=== PATIENT | male | born 1970 | race Caucasian/White ===

== ENCOUNTER 2024-03-03 02:03 | Emergency (ER) | payer MEDICAID ==
[2024-03-03 02:22] LABS: BASOPHILS ABSOLUTE AUTO 0.04 K/uL (0.00-0.20); BASOPHILS PERCENT AUTO 0.4 % (0.0-1.0); EOSINOPHILS ABSOLUTE AUTO 0.03 K/uL (0.00-0.45); EOSINOPHILS PERCENT AUTO 0.3 % (0.0-6.0); HEMATOCRIT 27.9 % (42.0-52.0); HEMOGLOBIN 9.1 g/dL (14.0-18.0); IMMATURE GRAN ABSOLUTE AUTO 0.04 K/uL (0.00-0.05); IMMATURE GRAN PERCENT AUTO 0.4 % (0.0-0.4); LYMPHOCYTES ABSOLUTE AUTO 1.08 K/uL (1.00-4.80); MEAN CORPUSCULAR HEMOGLOBIN 27.8 pg (28.0-32.0); MEAN CORPUSCULAR HGB CONC 32.6 g/dL (32.0-36.0); MEAN CORPUSCULAR VOLUME 85.3 fL (83.0-99.0); MEAN PLATELET VOLUME 10.4 fL (9.4-12.4); MONOCYTES ABSOLUTE AUTO 0.73 K/uL (0.00-0.80); MONOCYTES PERCENT AUTO 6.8 % (0.0-8.0); NEUTROPHILS ABSOLUTE AUTO 8.88 K/uL (1.80-7.70); NEUTROPHILS PERCENT AUTO 82.1 % (41.0-71.0); PLATELET COUNT,PLT 217 K/uL (150-400); RED BLOOD CELL COUNT 3.27 M/uL (4.52-5.90)
[2024-03-03] MEDS: hydrALAZINE 20 MG/ML SDV IVPUSH ONE ×2 (02:48→05:13)
[2024-03-03] MEDS: Sodium Chloride 0.9% 10 ML Syringe FLUSH PRN (02:49)
[2024-03-03] MEDS: Nitroglycerin 0.4 MG Tab.SL SL PRN (02:54)
[2024-03-03 02:56] LABS: ALANINE AMINOTRANSFERASE,ALT 12 IU/L (14-63); ALBUMIN 3.7 g/dL (3.4-5.0); ALKALINE PHOSPHATASE 80 U/L (46-116); ASPARTATE AMNIOTRANSFERASE,AST 6 IU/L (15-37); BILIRUBIN TOTAL 0.8 mg/dL (0.2-1.0); BLOOD UREA NITROGEN,BUN 127 mg/dL (7.0-18.0); C-REACTIVE PROTEIN 1.57 mg/dL (<0.3); CALCIUM 9.8 mg/dL (8.5-10.1); CARBON DIOXIDE,CO2 18.8 mmol/L (21.0-32.0); CHLORIDE,CL 102 mmol/L (98-107); GLUCOSE RANDOM 123 mg/dL (74-106); LIPASE 97 U/L (16-77); MAGNESIUM 1.9 mg/dL (1.8-2.4); POTASSIUM,K 4.3 mmol/L (3.5-5.1); PROTEIN TOTAL,TP 7.4 g/dL (6.4-8.2); SODIUM,NA 141 mmol/L (136-148)
[2024-03-03 02:58] LABS: CREATININE 25.8 mg/dL (0.8-1.3); EST CRCL DRUG DOSING (CG) 3.61 mL/min; PHOSPHORUS 10.8 mg/dL (2.6-4.7)
[2024-03-03 02:59] LABS: PRO B-TYPE NATRIUR PEPT,BNPPRO 35771 pg/mL (0-125)
[2024-03-03] MEDS: Labetalol 100 MG/20 ML MDV IVPUSH ONE (04:03)
[2024-03-03] MEDS: Furosemide 40 MG/4 ML VIAL IVPUSH ONE (04:40)
[2024-03-03] MEDS: Nitroglycerin/D5W 25 MG/250 ML BOTTLE IV SCH (04:40)
[2024-03-03 05:09] LABS: BASE EXCESS VENOUS -7.6 (-2.0-3.0); PH,VENOUS 7.32 (7.31-7.41)
[2024-03-03] MEDS: Ondansetron 4 MG/2 ML SDV IVPUSH ONE (05:10)
[2024-03-03 05:58] LABS: CORONAVIRUS COVID-19 NAA NEGATIVE (NEGATIVE); INFLUENZA A NAA NEGATIVE (NEGATIVE); INFLUENZA B NAA NEGATIVE (NEGATIVE); RESPIRATORY SYNCYTIAL VIR NAA NEGATIVE (NEGATIVE)
[2024-03-03] MEDS: Acetaminophen 500 MG Tab PO ONE (06:03)
[2024-03-03] MEDS ORDERED: cloNIDine 0.1 MG Tab PO ONE (06:16)
== END 2024-03-03 07:01 ==
LOC: MW.ED 02:03
DX: I16.1 Hypertensive emergency (principal); I12.0 Hypertensive chronic kidney disease with stage 5 chronic kidney disease or end stage renal disease; N18.6 End stage renal disease; D63.8 Anemia in other chronic diseases classified elsewhere; J90 Pleural effusion, not elsewhere classified; E87.70 Fluid overload, unspecified; J81.0 Acute pulmonary edema; R06.82 Tachypnea, not elsewhere classified; A08.4 Viral intestinal infection, unspecified; R11.2 Nausea with vomiting, unspecified; R68.83 Chills (without fever); Z99.2 Dependence on renal dialysis; Z79.899 Other long term (current) drug therapy
CPT/HCPCS: 0241U; 36415; 71045; 71250; 74176; 80053; 82803; 83605; 83690; 83735; 83880; 84100; 84484; 85025; 85652; 86140; 93005; 96365; 96366; 96375; 99285; A9270; J0360; J1920; J1940; J2305; J2405; J3490; 93010; 99291